=== PATIENT | female | born 1985 | race Caucasian/White ===

== ENCOUNTER → 2017-12-26 | Outpatient (CLI) | payer OTHER ==
[~2017-12-26] MED LIST: AC500T PO; CALC-783 PO; CEPH500C PO; CLC500CT PO; FRS325T PO; HC2.5C30 PR; OXYC-12 PO; PNV1CAPS13 PO
[2017-12-26 10:55] LABS: BASOPHILS % (AUTO) 1 % (0-10); EOSINOPHILS # (AUTO) 0.2 10^3/uL (0.0-0.3); EOSINOPHILS % (AUTO) 3 % (0-10); HEMATOCRIT 42 % (35-52); HEMOGLOBIN 14.2 G/DL (11.5-16.0); LYMPHOCYTES # (AUTO) 1.5 X 10^3 (1.0-4.0); LYMPHOCYTES % (AUTO) 22 % (12-44); MEAN CORPUSCULAR HEMOGLOBIN 29 PG (25-34); MEAN CORPUSCULAR HGB CONC 34 G/DL (32-36); MEAN CORPUSCULAR VOLUME 85 FL (80-99); MEAN PLATELET VOLUME 10.1 FL (7.4-10.4); MONOCYTES # (AUTO) 0.3 X 10^3 (0.0-1.0); MONOCYTES % (AUTO) 5 % (0-12); NEUTROPHILS # (AUTO) 4.5 X 10^3 (1.8-7.8); NEUTROPHILS % (AUTO) 69 % (42-75); PLATELET COUNT 222 10^3/uL (130-400); RED BLOOD COUNT 4.94 10^6/uL (4.35-5.85); RED CELL DISTRIBUTION WIDTH 13.1 % (10.0-14.5); WHITE BLOOD COUNT 6.6 10^3/uL (4.3-11.0)
[2017-12-26 11:09] LABS: BUN/CREATININE RATIO 14; CREATININE SERUM 0.84 MG/DL (0.60-1.30); GFR ESTIMATED > 60
[2017-12-28 04:04] LABS: ALTERNARIA MOLD RAST 0.41 kU/L (0.00-0.34); RAGWEED RAST 1.02 kU/L (0.00-0.34)
== END ==
LOC: LAB 10:24
PROVIDERS: ATTEND Internal Medicine Critical Care Medicine
DX: R05 Cough (principal); E66.9 Obesity, unspecified
CPT/HCPCS: 36415; 82565; 82785; 84520; 85025; 86003

== ENCOUNTER 2017-12-27 10:31 | Outpatient (RCR) | payer OTHER ==
[2017-12-11 15:54] LABS: BASOPHILS % (AUTO) 0 % (0-10); EOSINOPHILS # (AUTO) 0.2 10^3/uL (0.0-0.3); EOSINOPHILS % (AUTO) 2 % (0-10); HEMATOCRIT 46 % (35-52); HEMOGLOBIN 15.7 G/DL (11.5-16.0); LYMPHOCYTES # (AUTO) 2.1 X 10^3 (1.0-4.0); LYMPHOCYTES % (AUTO) 23 % (12-44); MEAN CORPUSCULAR HEMOGLOBIN 29 PG (25-34); MEAN CORPUSCULAR HGB CONC 34 G/DL (32-36); MEAN CORPUSCULAR VOLUME 85 FL (80-99); MEAN PLATELET VOLUME 10.5 FL (7.4-10.4); MONOCYTES # (AUTO) 0.3 X 10^3 (0.0-1.0); MONOCYTES % (AUTO) 4 % (0-12); NEUTROPHILS # (AUTO) 6.4 X 10^3 (1.8-7.8); NEUTROPHILS % (AUTO) 71 % (42-75); PLATELET COUNT 228 10^3/uL (130-400); RED BLOOD COUNT 5.45 10^6/uL (4.35-5.85); RED CELL DISTRIBUTION WIDTH 12.9 % (10.0-14.5)
[2017-12-11 16:11] LABS: ALANINE AMINOTRANSFERASE 13 U/L (0-55); ALBUMIN 4.4 GM/DL (3.2-4.5); ALKALINE PHOSPHATASE 51 U/L (40-136); BILIRUBIN,TOTAL 0.5 MG/DL (0.1-1.0); BUN/CREATININE RATIO 14; CALCIUM 9.4 MG/DL (8.5-10.1); CARBON DIOXIDE 24 MMOL/L (21-32); CHLORIDE 108 MMOL/L (98-107); CREATININE SERUM 0.81 MG/DL (0.60-1.30); GFR ESTIMATED > 60; GLUCOSE 88 MG/DL (70-105); POTASSIUM 4.1 MMOL/L (3.6-5.0); SODIUM 138 MMOL/L (135-145); TOTAL PROTEIN 7.1 GM/DL (6.4-8.2)
[2017-12-11 16:25] LABS: ERYTHROCYTE SEDIMENTATION RATE 1 MM/HR (0-20)
== END 2018-03-11 | disposition home or self-care (01) ==
LOC: ONC 10:31
PROVIDERS: ATTEND Internal Medicine Hematology & Oncology
DX: D80.1 Nonfamilial hypogammaglobulinemia (principal); R05 Cough; R06.2 Wheezing; E03.9 Hypothyroidism, unspecified; Z79.899 Other long term (current) drug therapy; Z80.0 Family history of malignant neoplasm of digestive organs
CPT/HCPCS: 36415; 80053; 82784; 83615; 83883; 84155; 84165; 85025; 85652; 86141; 99213; 99214

== ENCOUNTER → 2018-01-10 | Outpatient (CLI) | payer OTHER ==
[~2018-01-10] MED LIST changes: +RT-ALBUTEROL SULF 2.5 MG/3 ML PRE-MIX VIAL INH ONE
--- NOTE | 2018-01-10 11:25 | Diagnostic Imaging Report ---
PROCEDURE: CT chest without contrast. TECHNIQUE: Multiple contiguous axial images were obtained through the chest without the use of intravenous contrast. INDICATION: Chronic cough. There are no prior studies available for comparison. FINDINGS: The lungs are clear and well aerated. There is no sign of failure, pneumonia or pleural effusion to indicate an acute abnormality. No parenchymal lung mass identified either. The heart size is within normal limits. There are no coronary artery calcifications evident. The aorta is not abnormally dilated. There is no obvious mediastinal or hilar adenopathy. There is a triangular soft tissue density in the anterior mediastinum. I suspect that this is related to residual thymic tissue. The thyroid gland was not well visualized. There do appear to be surgical clips about both lobes of the thyroid. Correlation with the patient's surgical history would be recommended. There is no obvious breast mass identified. The patient did undergo a stereotactic biopsy of the right breast on 01/26/2017. The sections through the upper abdomen fail to show any sign of acute abnormality. The gallbladder is surgically absent. The bone windows show no evidence for fracture or for destructive lesion. IMPRESSION: 1. There is no evidence for an acute cardiopulmonary abnormality. There is no sign of a lung mass either. 2. The triangular soft tissue density in the anterior mediastinum is most likely related to residual thymic tissue. 3. There are postsurgical changes involving the right breast and the thyroid gland. The gallbladder is also surgically absent. Dictated by: Dictated on workstation # [id number]
== END ==
LOC: RT 09:18
PROVIDERS: ATTEND Internal Medicine Critical Care Medicine
DX: R05 Cough (principal); E66.9 Obesity, unspecified
CPT/HCPCS: 71250; 94060; 94726; 94729

== ENCOUNTER 2020-06-11 10:12 | Outpatient (CLI) | payer OTHER ==
[~2020-06-11 10:12] MED LIST changes: -RT-ALBUTEROL SULF 2.5 MG/3 ML PRE-MIX VIAL INH ONE
[2020-06-11] MEDS ORDERED: ONDANSETRON 4 MG/2 ML (SDV) Z0FRAN ONE ×2 (10:27→10:28)
[2020-06-11] MEDS ORDERED: KETOROLAC 30 MG/ML VIAL ONE (10:28)
[2020-06-11 10:40] VITALS: BP 108/73
[2020-06-11] MEDS: LACTATED RINGERS 2,000 ML IV SCH ×2 (10:50→12:05)
[2020-06-11] MEDS ORDERED: KETOROLAC 30 MG/ML VIAL IV PRN (12:15)
[2020-06-11] MEDS ORDERED: ONDANSETRON 4 MG/2 ML (SDV) Z0FRAN IV PRN (12:15)
== END 2020-06-11 14:01 | disposition home or self-care (01) ==
LOC: SDC 10:12
PROVIDERS: ATTEND Nurse Practitioner Family
DX: G43.909 Migraine, unspecified, not intractable, without status migrainosus (principal); E86.0 Dehydration
CPT/HCPCS: 96360; 96361

== ENCOUNTER → 2021-11-12 | Outpatient (CLI) | payer OTHER ==
--- NOTE | 2021-11-12 12:50 | Diagnostic Imaging Report ---
PROCEDURE: US Non-OB pelvis comp/trans. TECHNIQUE: Multiple real-time grayscale images were obtained of the pelvis in various projections endovaginally. Transabdominal imaging was also performed. INDICATION: Abnormal uterine bleeding. COMPARISON: None. FINDINGS: The uterus appears normal in size measuring 8.4 x 4.5 x 5.7 cm. The endometrium is normal in thickness measuring 7 mm. There does appear to be a heterogeneous mass in the anterior uterus measuring 4.0 x 2.6 x 4.5 cm. The right ovary measures 2.3 x 1.6 x 2 cm, and the left measures 3.4 x 2 x 2.2 cm. Vascularity is normal bilaterally, and no masses are seen. There is trace free fluid on the right. IMPRESSION: 1. Heterogeneous mass in the anterior uterus measuring up to 4.5 cm, likely a fibroid. No endometrial thickening. 2. Normal-appearing ovaries. Trace free fluid. Dictated by: Dictated on workstation # [id number]
== END ==
LOC: RAD 09:29
PROVIDERS: ATTEND Obstetrics & Gynecology
DX: N93.9 Abnormal uterine and vaginal bleeding, unspecified (principal)
CPT/HCPCS: 76830; 76856

== ENCOUNTER 2022-01-10 05:29 | Outpatient (CLI) | payer OTHER ==
[~2022-01-10] VITALS: Ht 157.5 cm; Wt 89.4 kg
[2022-01-10] MEDS ORDERED: THYR120T2 PO (10:31)
[2022-01-10] MEDS ORDERED: TRZ50T PO (10:31)
[2022-01-10] MEDS ORDERED: TOPI50TA13 PO (10:31)
[2022-01-10] MEDS ORDERED: FLUT200B IH (10:31)
== END 2022-01-10 10:47 ==
LOC: PREOP 05:29
PROVIDERS: ATTEND Obstetrics & Gynecology
DX: Z01.818 Encounter for other preprocedural examination (principal); D25.9 Leiomyoma of uterus, unspecified

== ENCOUNTER 2022-01-17 06:54 | Day surgery (SDC) | payer OTHER ==
[2022-01-17] VITALS (13 sets, daily range): BP systolic 104–143; BP diastolic 61–86
[~2022-01-17] VITALS: Ht 157.5 cm; Wt 89.4 kg
[~2022-01-17 06:54] MED LIST changes: +FLUT200B IH; +THYR120T2 PO; +TOPI50TA13 PO; +TRZ50T PO
[2022-01-17] MEDS ORDERED: MIDAZOLAM 2 MG/2 ML (VERSED) VIAL ONE (06:56)
[2022-01-17] MEDS ORDERED: fentaNYL INJ 100 MCG/2 ML AMP ONE (06:56)
[2022-01-17] MEDS ORDERED: NEOSTIGMINE 3 MG/3 ML VIAL ONE (06:56)
[2022-01-17] MEDS ORDERED: GLYCOPYRROLATE 0.2 MG/ML (ROBINUL) 2 ML VIAL ONE ×2 (06:56→08:41)
[2022-01-17] MEDS ORDERED: ONDANSETRON 4 MG/2 ML (SDV) Z0FRAN ONE (06:56)
[2022-01-17] MEDS ORDERED: ROCURONIUM 10 MG/ML 5 ML SYRINGE IV ONE (06:56)
[2022-01-17] MEDS ORDERED: LIDOCAINE PF 2% 5 ML (XYLOCAINE) VIAL ONE (06:56)
[2022-01-17] MEDS ORDERED: BUPIVACAINE 0.25% 30 ML (SENSORCAINE) VIAL ONE (06:56)
[2022-01-17] MEDS ORDERED: proPOfol 200 MG/20 ML (DIPRIVAN) VIAL IV ONE (06:56)
--- NOTE | 2022-01-17 07:17 | History & Physical-Surgical ---
HPO-Surgical History of Present Illness Chief Complaint: CPP, Fibroid uterus, Dysmenorrhea Diagnosis/Surgical Indication: FIBROID UTERUS, PELVIC PAIN, DYSMENORRHEA, DYSPAREUIA Procedure: ROBOTIC ASSESTED TOTAL LAPAROSCOPIC HYSTERECTOMY WITH POSSIBLE BILATERAL SALPINGO OOPHORECTOMY Date of Surgery: Jan 17, 2022 Weight (Pounds): 177 Weight (Ounces): 0.0 Height (Feet): 5 Height (Inches): 2.00 Allergies and Home Medications Allergies Coded Allergies: Sulfa (Sulfonamide Antibiotics) (Verified Allergy, Unknown, RASH, 01/10/22) alcohol (Verified Allergy, Unknown, CHEMICAL BURN, 01/10/22) clindamycin (Verified Allergy, Unknown, rash, 01/10/22) corn (Verified Allergy, Unknown, MIGRAINES,ETC, 01/10/22) erythromycin base (Verified Allergy, Unknown, UPSET STOMACH, 01/10/22) gluten (Verified Allergy, Unknown, MIGRAINES, ETC, 01/10/22) gum mastic (Verified Allergy, Unknown, CHEMICAL BURN, 01/10/22) methyl salicylate (Verified Allergy, Unknown, CHEMICAL BURN, 01/10/22) storax (Verified Allergy, Unknown, CHEMICAL BURN, 01/10/22) wheat (Verified Allergy, Unknown, MIGRAINES,ETC, 01/10/22) Patient Home Medication List Home Medication List Reviewed: Yes Fluticasone Furoate (Arnuity Ellipta) 200 Mcg Blst.w.dev, 200 MCG IH PRN, (Reported) Entered as Reported by: GILMA WERNER on 01/10/22 1031 Thyroid,Pork ([place] Thyroid) 120 Mg Tablet, PO AFTERNOON, (Reported) Entered as Reported by: GILMA WERNER on 01/10/22 1031 Topiramate (Topiramate) 50 Mg Tablet, 100 MG PO EVENING, (Reported) Entered as Reported by: GILMA WERNER on 01/10/22 1031 Trazodone HCl (Trazodone HCl) 50 Mg Tablet, 50 MG PO HS, (Reported) Entered as Reported by: GILMA WERNER on 01/10/22 1031 Discontinued Medications Calcium Carbonate (Tums) 500 Mg Tab.chew, 500 MG PO NEEDED PRN, (Reported) Discontinued Reason: No Longer Taking Entered as Reported by: MICKY FAIRCHILD on 06/19/12 1459 Ferrous Sulfate (Iron) 325 Mg Tablet, 1 TAB PO BID, (Reported) Discontinued Reason: No Longer Taking Entered as Reported by: MICKY FAIRCHILD on 06/19/12 1459 Hydrocortisone (Anusol-Hc Cream) 30 Gm Tube, 0 SD BID PRN, (Reported) Discontinued Reason: No Longer Taking Entered as Reported by: DICK LUNA on 06/25/12 1028 Oxycodone Hcl/Acetaminophen (Percocet 5-325 Mg Tablet) 1 Each Tablet, 1-2 EACH PO Q 4HRS PRN, (Reported) Discontinued Reason: No Longer Taking Entered as Reported by: DICK LUNA on 06/25/12 1016 Pnv Comb.no58/Iron Bisgly/Fa ( Capsule) 1 Each Capsule, 1 EACH PO DAILY, (Reported) Discontinued Reason: No Longer Taking Entered as Reported by: LE BARTH on 03/20/12 0647 Past Ypooijc-Wnzyvn-Cyvjic Hx Patient Social History 2nd Hand Smoke Exposure: No Recent Hopitalizations: No Immunizations Up To Date Tetanus Booster (TDap): Less than 5yrs Pediatric: Yes Date of Influenza Vaccine: Jan 16, 2012 Seasonal Allergies Seasonal Allergies: Yes Surgeries Yes (appendix 2006, gall bladder 2000, T&A, WISDOM TEETH, abdominoplasty/breast ) Adenoidectomy, Appendectomy, Section, Gallbladder, Tonsillectomy Respiratory Yes (allergy flare for inhaler and post covid) Cardiovascular No Neurological Yes (botox for migraines) Headaches /Migraines Reproductive System Hx Reproductive Disorders: No Female Reproductive Disorders: Menstrual Problems, Polycystic Ovarian Dis Genitourinary No Kidney Stones Gastrointestinal Yes Gall Bladder Disease Musculoskeletal Yes (Carpal Tunnel bilateral hands r/t pg) Endocrine History of Endocrine Disorders: Yes Endocrine Disorders: Hypothyroidsim HEENT History of HEENT Disorders: No Cancer No Psychosocial History of Psychiatric Problem: No Integumentary History of Skin or Integumenta: No Blood Transfusions History of Blood Disorders: Yes (Hx of low platelets with including current , hx anemia) Exam Vital Signs Capillary Refill : General Appearance: Alert, Oriented X3 HEENT: Atraumatic Respiratory: Clear to Auscultation Cardiovascular: Regular Rate Abdominal: Normal Bowel Sounds Extremities: No Clubbing Skin: No Rashes Neuro: Normal Gait Psych/Mental Status: Mental Status NL Assessment/Plan Assessment and Plan Diagnosis: 36 yo w/ Fibroid uterus Chronic pelvic pain Dysmenorrhea Dyspareunia Admission Diagnosis Diagnosis: 36 yo w/ Fibroid uterus Chronic pelvic pain Dysmenorrhea Dyspareunia P: GALINA w/ poss BSO Admission Status: Other (Outpt Proc) HAYDER WASHBURN DO Jan 17, 2022 07:17
--- NOTE | 2022-01-17 07:21 | Discharge Inst-Women's Service ---
Discharge Inst-Women's Serv Depart Medication/Instructions New, Converted or Re-Newed RX: Transmitted to Pharmacy Final Diagnosis POD 0 RATLH Problems Reviewed?: Yes Consults/Follow Up Additional Follow Up: Yes Orders/Referrals Dr. Tarango in 7-10 days and in 8 weeks Activity Activity: Activity as Tolerated Driving Instructions: No Driving for 1 Week NO SMOKING: NO SMOKING Nothing Inside Vagina: No Douching, No [place], No Tampons Diet Discharge Diet: No Restrictions Symptoms to Report to : Bleeding Excessive, Pain Increased, Fever Over 101 Degrees F, Vaginal Bleeding Increase, Questions/Concerns For Any Problems or Questions: Contact Your Physician Skin/Wound Care Infection Signs and Symptoms: Increased Redness, Foul Odor of Wound, Increased Drainage, Skin Itchy or Has a Rash, Increased Swelling, Temperature Above 101 F Operative Area Clean and Dry: Keep Incision Clean/Dry, You May Remove Bandage Stitches/Paxton/Dermabond: Dermabond, Care of Stitches Bathing Instructions: HAYDER Johnson DO Jan 17, 2022 07:21
[2022-01-17] MEDS ORDERED: HYDR-34 PO (07:22)
[2022-01-17] MEDS ORDERED: ceFAZolin INJECTION 2,000 MG ONE (07:22)
[2022-01-17] MEDS ORDERED: SIME80TA16 PO (07:22)
[2022-01-17] MEDS ORDERED: metroNIDAZOLE 500MG/100ML IVPB 100 ML ONE (07:22)
[2022-01-17] MEDS ORDERED: DOCU-143 PO (07:22)
[2022-01-17] MEDS ORDERED: IBUP-844 PO (07:22)
[2022-01-17] MEDS ORDERED: NS (IVPB) 50 ML ONE (07:23)
[2022-01-17] MEDS ORDERED: ANTACID SUSP 30 ML UDC (MYLANTA) PO PRN (07:30)
[2022-01-17] MEDS ORDERED: CEPACOL SORE THROAT-COUGH LOZENGE MM PRN (07:30)
[2022-01-17] MEDS ORDERED: DOCUSATE SODIUM 100 MG (COLACE) CAP PO PRN (07:30)
[2022-01-17] MEDS ORDERED: ONDANSETRON 4 MG/2 ML (SDV) Z0FRAN IV PRN (07:30)
[2022-01-17] MEDS ORDERED: KETOROLAC 30 MG/ML VIAL IVP PRN (07:30)
[2022-01-17] MEDS ORDERED: SIMETHICONE 80 MG (MYLICON) CHEW PO PRN (07:30)
[2022-01-17] MEDS ORDERED: HYDROcodone/APAP 7.5 MG/325 MG (LORTAB, LORCET PLUS) TABLET PO PRN (07:30)
[2022-01-17] MEDS ORDERED: ZOLPIDEM 5 MG (AMBIEN) TAB PO PRN (07:30)
[2022-01-17] MEDS ORDERED: morphine INJ 10 MG/ML 1ML (SYR OR VIAL) IVP ONE (07:45)
[2022-01-17] MEDS ORDERED: ONDANSETRON 4 MG/2 ML (SDV) Z0FRAN IVP PRN (07:45)
[2022-01-17] MEDS ORDERED: HYDROmorphone 2 MG/ML VIAL (DILAUDID) IV ONE (07:45)
[2022-01-17] MEDS ORDERED: LACTATED RINGERS 1,000 ML IV PRN (08:00)
[2022-01-17] MEDS ORDERED: metroNIDAZOLE 500MG/100ML IVPB 100 ML IV ONE (08:00)
[2022-01-17] MEDS ORDERED: ceFAZolin INJECTION 2,000 MG in NS (IVPB) 50 ML IV SCH (08:00)
[2022-01-17 08:08] LABS: BASOPHILS % (AUTO) 1 % (0-10); EOSINOPHILS # (AUTO) 0.1 10^3/uL (0.0-0.3); EOSINOPHILS % (AUTO) 1 % (0-10); HEMATOCRIT 45 % (35-52); HEMOGLOBIN 15.3 g/dL (11.5-16.0); LYMPHOCYTES # (AUTO) 1.3 10^3/uL (1.0-4.0); LYMPHOCYTES % (AUTO) 24 % (12-44); MEAN CORPUSCULAR HEMOGLOBIN 30 pg (25-34); MEAN CORPUSCULAR HGB CONC 34 g/dL (32-36); MEAN CORPUSCULAR VOLUME 88 fL (80-99); MEAN PLATELET VOLUME 10.1 fL (9.0-12.2); MONOCYTES # (AUTO) 0.2 10^3/uL (0.0-1.0); MONOCYTES % (AUTO) 4 % (0-12); NEUTROPHILS # (AUTO) 3.8 10^3/uL (1.8-7.8); NEUTROPHILS % (AUTO) 69 % (42-75); PLATELET COUNT 196 10^3/uL (130-400); WHITE BLOOD COUNT 5.5 10^3/uL (4.3-11.0)
[2022-01-17] MEDS ORDERED: SEVOFLURANE (ULTANE) 15 ML INHAL SOLN ONE (08:57)
[2022-01-17] MEDS: LACTATED RINGERS 1,000 ML IV SCH ×2 (08:59→13:30)
[2022-01-17] MEDS ORDERED: IBUPROFEN 600 MG (MOTRIN) TAB PO SCH (12:00)
--- NOTE | 2022-01-17 15:18 | Anesthesia-General Post-Op ---
General Patient Condition Mental Status/LOC: Same as Preop Cardiovascular: Satisfactory Nausea/Vomiting: Absent Respiratory: Satisfactory Pain: Controlled Complications: Absent Post Op Complications Complications None Follow Up Care/Instructions Patient Instructions None needed. Anesthesia/Patient Condition Patient Condition Patient was doing well this morning in PACU with no complaints, stable vital signs, no apparent adverse anesthesia problems. No complications reported per nursing. AMY OVALLES DO Jan 17, 2022 15:17
--- NOTE | 2022-01-17 17:28 | OPERATIVE REPORT ---
DATE OF SERVICE: PREOPERATIVE DIAGNOSES: 1. A 36-year-old female with fibroid uterus. 2. Dysmenorrhea. 3. Menorrhagia. 4. Dyspareunia. 5. Chronic pelvic pain. POSTOPERATIVE DIAGNOSES: 1. A 36-year-old female with fibroid uterus. 2. Dysmenorrhea. 3. Menorrhagia. 4. Dyspareunia. 5. Chronic pelvic pain. PROCEDURE: Robotic-assisted total laparoscopic hysterectomy with bilateral salpingectomy. SURGEON: Wilber Washburn DO ANESTHESIA: General endotracheal. ESTIMATED BLOOD LOSS: Minimal. URINE OUTPUT: 50 mL clear at the end of procedure. FLUIDS: 800 mL lactated Ringer's solution. FINDINGS: A bulky hyperemic-appearing uterus with evidence of intramural fibroid. Grossly normal appearing bilateral fallopian tubes and ovaries. SPECIMEN SENT: Uterus, bilateral fallopian tubes. INDICATIONS FOR PROCEDURE: This 36-year-old female is a patient who sought care in my office for ongoing issues with chronic pelvic pain. She had an ultrasound that revealed a fibroid in her uterus. She also reported pain with intercourse and severely painful. She has tried alternative measures that were much more conservative in the past without any alleviation of her symptoms. She wished to proceed with more definitive measures. We discussed hysterectomy in detail including risk of bleeding, infection, damage to surrounding structures including, but not limited to bowel, bladder, ureter, kidneys, possible need for reoperation, postoperative complications that may occur, recovery timeframe, risk from anesthesia and even . After everything was discussed with the patient in detail, consent was obtained, the patient was taken to the operating room. OPERATIVE REPORT IN DETAIL: Once in the operating room, general anesthesia was found to be adequate. She was placed in dorsal lithotomy position, prepped and draped in normal sterile fashion. A timeout was performed. Joaquin catheter was placed using sterile technique. A weighted speculum inserted to the patient's vagina. A 0 Vicryl suture was placed in the anterior lip of the cervix. Once it was visualized and the cervix is then retracted using the 0 Vicryl suture. I then gently sound the uterine cavity, depth was found to be 8 cm. I placed a Marga uterine manipulator with 8 cm tip and a 3.5 cm colpotomy ring advancing the tip into the uterus deploying the balloon and advancing the colpotomy ring around the vaginal fornix after which I removed all the other instruments from the patient's vagina, performed change of gloves, turned my attention to the abdomen, where subcostally at the midclavicular line, I introduced the Veress needle until intraperitoneal placement confirmed using saline drop test. An opening pressure of 6 mmHg was noted. I proceeded to maximum pressure of 15 mmHg using CO2 gas. I then infiltrated the supraumbilical area using 0.25% Marcaine to make an 8 mm incision with a knife and directed a blunt laparoscopic 8 mm da Logan camera trocar through this incision until intraperitoneal placement was confirmed using the da Logan laparoscope. There was no evidence of damage upon my entry site and then there is no evidence of damage upon the Veress entry site once peritoneal access is obtained and visualized. I then had the patient placed in steep Trendelenburg where I am able to visualize all my pelvic anatomy as defined in my findings above. I placed two lateral trocars, both 8 mm trocars approximately 10 cm lateral to my supraumbilical trocar. Once both these trocars were in place, I bring in the da Logan robot and docked in appropriate fashion placing the SynchroSeal device in left hand and monopolar byron in the right hand. I performed the following dissection bilaterally. Starting at the uteroovarian ligament, I sealed and transected this using the SynchroSeal device. I then created a window in the mesosalpinx, took this laterally amputating the fallopian tube from its surrounding blood supply. I then grasped the round ligament, which I sealed and transected using the SynchroSeal device. I then grasped the entire broad ligament, which I sealed and transected using the SynchroSeal device, which allows me to open up the anterior and posterior leaflets of the broad ligament. The anterior leaflet dissection was taken around the anterior vaginal fornix and posterior leaflets was taken around to the posterior vaginal fornix. This allows me to skeletonize the uterine vessels laterally, which I sealed and transected using the SynchroSeal device. I then created a colpotomy at 12 o'clock position using monopolar byron and took this circumferentially around the vaginal fornix amputating the cervix away from the vagina, after which there was no active bleeding noted from any of my dissection planes. I then removed the cervix, uterus, bilateral fallopian tubes through the vagina. The vaginal cuff was then closed using 2-0 V-Loc in a running fashion, after which there was no active bleeding noted from any of my dissection planes. I then undocked the da Logan robot and proceeded with remainder of the case laparoscopically. I could then copiously irrigate the pelvis using normal saline. Once again, there was no active bleeding noted from any of my dissection planes. I placed Surgiflo hemostatic agent over all my planes of dissection and then have the patient taken out of steep Trendelenburg. I then removed the lateral trocars under direct visualization of the laparoscope. The supraumbilical trocar was left in place to release insufflation and to introduce 10 mL of 0.25% Marcaine into peritoneal cavity for postoperative pain management. I then removed this trocar as well. The skin was reapproximated using 4-0 Monocryl in interrupted subcuticular stitches. Dermabond was applied to the incisions and Band-Aids were placed over the incisions as well. The Veress needle was removed. Joaquin catheter was left in place. The patient tolerated the procedure well and sent to recovery area in stable condition. Lap and sponge counts were correct at the end of the procedure. Instrument counts correct as well. Two grams of Ancef, 500 mg of Flagyl were given preoperatively for infection prophylaxis. Job ID: [id number] DocumentID: [id number] Dictated Date: 01/17/2022 09:30:29 Doughnut Icer Date: 01/17/2022 17:27:32 Dictated By: WILBER WASHBURN DO
== END 2022-01-17 16:00 | disposition home or self-care (01) ==
LOC: SDC 06:54 → WS 10:14 → SDC 16:00
PROVIDERS: ATTEND Obstetrics & Gynecology
DX: D25.1 Intramural leiomyoma of uterus (principal); N92.0 Excessive and frequent menstruation with regular cycle; G89.29 Other chronic pain; N94.6 Dysmenorrhea, unspecified
CPT/HCPCS: 36415; 84703; 85025; 86850; 86900; 86901; 87081; 94664